=== PATIENT | male | born 1965 | race Caucasian/White ===

== ENCOUNTER 2019-09-14 10:06 | Emergency (ER) | payer BC ==
[2019-09-14 10:24] VITALS: BP 136/86
--- NOTE | 2019-09-14 10:42 | UC ---
Neck Pain HPI - HPI Summary HPI Summary: neck pain x 1 day pain is 7 out of 10, worse with neck movement , better with rest, + injury , s/p fall on ice yesterday , hit the back of her head to the ground, no LOC, no memory loss, no change if vision , no photophobia no radiation of the pain , no upper ext. weakness, no numbness/ weakness of upper ext. - History of Current Complaint Chief Complaint: UCHeadache Stated Complaint: HEAD/NECK INJURY Time Seen by Provider: 09/14/19 10:14 Hx Obtained From: Patient Onset/Duration Of Injury/Symptoms: Days - 1 Mechanism Of Injury: Blunt Trauma Timing: Constant Onset/Duration: Sudden Onset, Still Present Severity: Moderate Pain Intensity: 7 Location: Discrete At: - posterior neck Character: Aching, Stiff Aggravating Factors: Movement Alleviating Factors: Nothing Associated Signs & Symptoms: Negative: Swelling, Redness, Bruising, Fever, Nuchal Rigity, Weakness, Headache, Paresthesia - Allergies/Home Medications Allergies/Adverse Reactions: Allergies Allergy/AdvReac Type Severity Reaction Status Date / Time No Known Allergies Allergy Verified 09/14/19 10:20 PMH/Surg Hx/FS Hx/Imm Hx Cardiovascular History: Cardiac Disease, Myocardial Infarction - Surgical History Surgical History: Yes Surgery Procedure, Year, and Place: VARICOSE VEIN SURGERY [facility] 2007,2011, LEFT LEG. DEVIATED SEPTUM, 11/2014, [facility]. cardiac stents x3 - Family History Known Family History: Positive: Hypertension - Social History Alcohol Use: Occasionally Alcohol Amount: 6 PER WEEK Substance Use Type: None Smoking Status (MU): Never Smoked Tobacco Review of Systems All Other Systems Reviewed And Are Negative: Yes Constitutional: Positive: Negative Skin: Positive: Negative Eyes: Positive: Negative ENT: Positive: Negative Respiratory: Positive: Negative Is Patient Immunocompromised?: No Physical Exam Triage Information Reviewed: Yes Appearance: Well-Appearing, No Pain Distress, Well-Nourished Vital Signs: Initial Vital Signs Temp 98.3 F 09/14/19 10:20 Pulse 87 09/14/19 10:20 Resp 15 09/14/19 10:20 BP 136/86 09/14/19 10:20 Pulse Ox 95 09/14/19 10:20 Vital Signs Reviewed: Yes Eye Exam: Normal Eyes: Positive: Conjunctiva Clear ENT: Positive: Normal ENT inspection, Hearing grossly normal, Pharynx normal Neck: Positive: Supple, Other: - no cervical spine point tenderness, pain with flexion , extension / rotation , Respiratory: Positive: Chest non-tender, Lungs clear, Normal breath sounds Cardiovascular: Positive: RRR, No Murmur, Pulses Normal Abdominal Exam: Normal Musculoskeletal Exam: Normal Neurological Exam: Normal Psychological Exam: Normal Skin Exam: Normal UC Physical Exam Vital Signs On Initial Exam: Initial Vitals Temp Pulse Resp BP Pulse Ox 98.3 F 87 15 136/86 95 09/14/19 10:20 09/14/19 10:20 09/14/19 10:20 09/14/19 10:20 09/14/19 10:20 - Neurological Exam Neurological: Normal, Sensory/Motor Intact, Alert, Oriented to Person Place, Time, CN Intact II-III, Normal Gait, Speech Normal Diagnostics - Radiology No standard instances Radiology Interpretation Completed By: Radiologist Summary of Radiographic Findings: cervical spine xray : IMPRESSION: STRAIGHTENING CERVICAL LORDOSIS DEGENERATIVE DISC DISEASE AND OSTEOARTHRITIS NO ACUTE OSSEOUS INJURY OF THE CERVICAL SPINE. Neck Pain Course/Dx - Differential Dx/Diagnosis Provider Diagnosis: Cervical sprain, Contusion of head Discharge ED - Sign-Out/Discharge Documenting (check all that apply): Patient Departure All imaging exams completed and their final reports reviewed: Yes - Discharge Plan Condition: Stable Disposition: HOME Patient Education Materials: Cervical Sprain (ED) Referrals: Ken Genao DO [Primary Care Provider] - 7 Days - Billing Disposition and Condition Condition: STABLE Disposition: Home
== END 2019-09-14 11:17 | disposition home or self-care (01) ==
LOC: UCCORT 10:06
DX: S13.4XXA Sprain of ligaments of cervical spine, initial encounter (principal); S00.83XA Contusion of other part of head, initial encounter; I25.2 Old myocardial infarction; M50.80 Other cervical disc disorders, unspecified cervical region; M50.30 Other cervical disc degeneration, unspecified cervical region; M47.892 Other spondylosis, cervical region; W00.9XXA Unspecified fall due to ice and snow, initial encounter; Y92.9 Unspecified place or not applicable
CPT/HCPCS: 72040; 99211; G0463